=== PATIENT | male | born 1950 | race African-American/Black ===

== ENCOUNTER 2017-07-02 14:24 | Outpatient (CLI) | payer MEDICARE, MEDICAID | END 2017-07-02 14:25 | disposition home or self-care (01) | LOC: BICULT 14:24 | PROVIDERS: ATTEND Urology | DX: N20.0 Calculus of kidney (principal); N28.1 Cyst of kidney, acquired; Z87.440 Personal history of urinary (tract) infections | CPT/HCPCS: 74018; 76770; 80048; 81001; 84550; 87086; 88112 ×2; G0103; 36415 ==

== ENCOUNTER 2017-08-13 13:00 | Outpatient (CLI) | payer MEDICARE, MEDICAID | END 2017-08-13 13:01 | disposition home or self-care (01) | LOC: BICRAD 13:00 | PROVIDERS: ATTEND Family Medicine | DX: R93.8 Abnormal findings on diagnostic imaging of other specified body structures (principal) | CPT/HCPCS: 71046 ==

== ENCOUNTER 2018-09-10 09:53 | Outpatient (CLI) | payer MEDICARE, MEDICAID ==
--- NOTE | 2018-09-10 10:41 | RAD ---
KUB: History: Renal calculus. FINDINGS: Bowel gas pattern is nonobstructed. There are small calcific density which is overlying the region of the right kidney, in the 4 mm range. Both kidneys are obscured by bowel gas. No definitive left side d calculi are seen. Questionable tiny faint densities are present. IMPRESSION: Calcification overlying the right kidney potentially a small right renal calculus. POS: TPC
--- NOTE | 2018-09-10 12:56 | NM ---
NM Parathyrd Planar W/Spect CT History: [Diagnosis of kidney. Elevated parathyroid hormone. Renal calculi. Renal cysts.] Comparison: None. Findings: SPECT-CT and planar imaging of the neck was performed immediate and one hour and 2 hour del ayed sequences after the intravenous administration of 24.2 mCi technetium 99m sestamibi. There is adequate uptake of radiotracer within the salivary glands and thyroid. On the delayed phase there is abnormal retained radiotracer uptake posterior to the inferior pole right lobe of thyroid adjacent to the right trachea. 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
== END 2018-09-10 09:54 | disposition home or self-care (01) ==
LOC: NM 09:53
PROVIDERS: ATTEND Urology
DX: N40.1 Benign prostatic hyperplasia with lower urinary tract symptoms (principal); N20.0 Calculus of kidney; N28.1 Cyst of kidney, acquired; R79.89 Other specified abnormal findings of blood chemistry; N28.89 Other specified disorders of kidney and ureter
CPT/HCPCS: 74018; 78072; A9500

== ENCOUNTER 2019-07-14 11:36 | Outpatient (CLI) | payer MEDICARE, MEDICAID ==
--- NOTE | 2019-07-14 12:02 | RAD ---
EXAM: XR Abdomen 1 View/KUB PROVIDED CLINICAL HISTORY: Renal calculi COMPARISON: 09/10/2018 FINDINGS: Prominent nonspecific gaseous distention of stomach. Stable right hemipelvic phlebolith. The previous ly described possible right renal calculus is probably again seen overlying the right 12th rib. No additional radiographically apparent urinary tract calculi. The osseous structures demonstrate no acu te findings. IMPRESSION: Stable exam.
--- NOTE | 2019-07-14 13:24 | ULT ---
BILATERAL RENAL ULTRASOUND: HISTORY: Kidney stones. FINDINGS: The right kidney measures 13.4 cm in length and the left kidney measures 4.5 cm in length. No hydronephrosis is seen on either side. No right-sided renal mass is seen. There is a 2.3 x 1.6 x 1.9 cm cyst arising from the inferior pole of the left kidney. There are shadowing calculi in the kidneys on both sides, the largest on the right measuring 6 mm and the largest on the left measuring 11 mm. The prevoid bladder volume is 88 cc. IMPRESSION: 1. Nonobstructing bilateral renal calculi. 2. Left renal cyst. POS: OFF
== END 2019-07-14 11:37 | disposition home or self-care (01) ==
LOC: BICULT 11:36
PROVIDERS: ATTEND Urology
DX: N20.0 Calculus of kidney (principal); N28.1 Cyst of kidney, acquired
CPT/HCPCS: 74018; 76770

== ENCOUNTER 2019-10-29 11:11 | Emergency (ER) | payer MEDICARE, MEDICAID ==
[2019-10-29 12:42] LABS: Bacteria/HPF 4+ HPF (None Seen); Bilirubin 1+ (Negative); Blood, Urine 2+ (Negative); Clarity Extra Turbid (Clear); Glucose, Urine (Dipstick) Normal (Negative); Leukocyte 500 Leu/uL (Negative); Nitrite 2+ (Negative); Protein, Urine (Dipstick) 50 mg/dL (Neg-Trace); Squamous Epithelial 0-3 HPF (0-3); Urobilinogen Normal mg/dL (Less than 2); WBC/HPF Greater than 50 HPF (0-3)
== END 2019-10-29 13:16 | disposition home or self-care (01) ==
LOC: ERS 11:11
DX: N30.00 Acute cystitis without hematuria (principal); I10 Essential (primary) hypertension; E78.00 Pure hypercholesterolemia, unspecified; M10.9 Gout, unspecified; F17.220 Nicotine dependence, chewing tobacco, uncomplicated; Z87.442 Personal history of urinary calculi
CPT/HCPCS: 81003; 81015; 87077; 87086; 87186; 99283

== ENCOUNTER 2020-09-08 10:14 | Outpatient (CLI) | payer MEDICARE, MEDICAID | END 2020-09-08 10:15 | disposition home or self-care (01) | LOC: BICRAD 10:14 | PROVIDERS: ATTEND Family Medicine | DX: R91.8 Other nonspecific abnormal finding of lung field (principal); J98.11 Atelectasis; Q79.1 Other congenital malformations of diaphragm | CPT/HCPCS: 71046 ==

== ENCOUNTER 2021-01-26 08:16 | Outpatient (CLI) | payer MEDICARE, MEDICAID | END 2021-01-26 08:17 | disposition home or self-care (01) | LOC: NM 08:16 | PROVIDERS: ATTEND Specialist | DX: E21.3 Hyperparathyroidism, unspecified (principal) | CPT/HCPCS: 78072; A9500 ==

== ENCOUNTER 2021-03-07 10:37 | Outpatient (CLI) | payer MEDICARE, MEDICAID | END 2021-03-07 10:38 | disposition home or self-care (01) | LOC: BICULT 10:37 | PROVIDERS: ATTEND Urology | DX: Z12.5 Encounter for screening for malignant neoplasm of prostate (principal); D35.1 Benign neoplasm of parathyroid gland; N40.1 Benign prostatic hyperplasia with lower urinary tract symptoms; E21.3 Hyperparathyroidism, unspecified; N20.0 Calculus of kidney; R35.1 Nocturia; M10.00 Idiopathic gout, unspecified site; N28.1 Cyst of kidney, acquired | CPT/HCPCS: 74018; 76770 ==

== ENCOUNTER 2023-06-26 08:37 | Outpatient (CLI) | payer OTHER, MEDICAID | END 2023-06-26 08:38 | disposition home or self-care (01) | LOC: BICRAD 08:37 | PROVIDERS: ATTEND Family Medicine | DX: M79.671 Pain in right foot (principal); M79.672 Pain in left foot; M20.12 Hallux valgus (acquired), left foot; M20.11 Hallux valgus (acquired), right foot; M21.612 Bunion of left foot; M21.611 Bunion of right foot; M19.072 Primary osteoarthritis, left ankle and foot; M19.071 Primary osteoarthritis, right ankle and foot ==